=== PATIENT | female | born 1955 | race Two or more races ===

== ENCOUNTER 2023-04-04 19:36 | Inpatient (IN) | payer MEDICARE, OTHER ==
[~2023-04-04] VITALS: Ht 165.1 cm; Wt 77.0 kg
[2023-04-04 21:58] LABS: Eosinophils # (auto) 0.1 10 ^3/uL (0-0.8); Eosinophils % (auto) 0.9 % (0.0-7.0); Hemoglobin 12.5 g/dL (12.2-16.2); Neutrophils # (auto) 11.2 10 ^3/uL (1.6-8.6)
[2023-04-04 22:00] LABS: Basophils # (auto) 0.1 10 ^3/uL (0-0.2); Basophils % (auto) 0.5 % (0.0-2.0); Hematocrit 36.5 % (36.0-46.0); Lymphocytes # (auto) 1.1 10 ^3/uL (0.4-5.4); Lymphocytes % (auto) 8.4 % (10.0-50.0); Mean Corpuscular Hemoglobin 33.8 pg (28.0-32.0); Mean Corpuscular Hgb Conc. 34.3 g/dL (32.0-36.0); Mean Corpuscular Volume 98.6 fL (80.0-100.0); Monocytes % (auto) 7.4 % (0.0-12.0); Neutrophils % (auto) 82.8 % (37.0-80.0); Red Blood Cells 3.71 10^6/uL (4.0-5.20); Red Cell Distribution Width 12.3 % (11.8-14.3); White Blood Cell 13.6 10^3/uL (4.4-10.8)
[2023-04-04 22:20] LABS: Alanine Aminotransferase 18 U/L (7-40); Albumin 3.4 g/dL (3.2-4.8); Alkaline Phosphatase 107 U/L (46-116); Anion Gap 6 (5-15); Aspartate Aminotransferase 18 U/L (13-40); BUN/Creatinine Ratio 11.2 (10.0-20.0); Blood Urea Nitrogen 12 mg/dL (9-23); Calcium 8.6 mg/dL (8.7-10.4); Carbon Dioxide 25 mmol/L (20-30); Chloride 101 mmol/L (98-107); Glucose 375 mg/dL (74-106); Potassium 4.2 mmol/L (3.5-5.1); Sodium 132 mmol/L (136-145)
[2023-04-04 22:21] LABS: Bilirubin, Total 0.3 mg/dL (0.2-1.0); Total Protein 6.9 g/dL (5.7-8.2)
[2023-04-04] MEDS: IOHEXOL 300 MG/ML 100ML BOTTLE IJ ONE (23:10)
[2023-04-04] MEDS: InsuLIN REG 1unit/0.01ml Soln (100units/ml) IV ONE (23:30)
[2023-04-05] MEDS: PIPERACILLIN-TAZO 4.5GM 100 ML IV ONE (00:45)
[2023-04-05] MEDS: SODIUM CHLORIDE 0.9% 1,000 ML IV ONE (00:46)
[2023-04-05] MEDS ORDERED: ACETAMINOPHEN 325 MG TAB PO PRN (05:00)
[2023-04-05] MEDS ORDERED: ONDANSETRON HCL 4 MG/2 ML VIAL IV PRN (05:00)
[2023-04-05] MEDS ORDERED: DEXTROSE (50%) 50ML SYRG IV PRN (05:00)
[2023-04-05] MEDS: ACCU-CHEK COMFORT CURVE STRIP VI SCH ×2 (06:00→17:51)
[2023-04-05] MEDS: InsuLIN REG 1unit/0.01ml Soln (100units/ml) SC SCH ×2 (07:23→17:53)
[2023-04-05] MEDS: CLINDAMYCIN 600MG IV 50 ML IV SCH (08:23)
[2023-04-05] MEDS: HYDROcodone-ACET 5/325MG TAB PO PRN (08:29)
[2023-04-05] MEDS: BENAZEPRIL HCL 10 MG TAB PO SCH (09:44)
[2023-04-05] MEDS: GABAPENTIN 100 MG CAP PO SCH (09:44)
[2023-04-05] MEDS: cefTRIAXone 1GM/50ML D5W 50 ML IV SCH (09:44)
[2023-04-05 15:15] VITALS: RESP 18; O2SAT 97
[2023-04-05] MEDS ORDERED: VANCOMYCIN PER PHARMACY 0 MG IV SCH (15:15)
[2023-04-05] MEDS: INSULIN LANTUS (GLARGINE) 1 /0.01ml (100units/ml) SC ONE (16:15)
[2023-04-05] MEDS: VANCOMYCIN 1GM/200ML 200 ML IV ONE (16:36)
[2023-04-05] MEDS: PIPERACILLIN-TAZOB 3.375GM 100 ML IV SCH (18:27)
[2023-04-05] MEDS: ATORVASTATIN 20 MG TAB PO SCH (22:00)
[2023-04-05] MEDS: INSULIN LANTUS (GLARGINE) 1 /0.01ml (100units/ml) SC SCH (23:07)
[2023-04-06] VITALS (10 sets, daily range): BP systolic 111–157; BP diastolic 52–88; PULSE 59–71; RESP 16–20; TEMP 97.5–98.4; O2SAT 96–99
[2023-04-06] MEDS: VANCOMYCIN 750mg/150ml 150 ML IV SCH (05:17)
[2023-04-06 06:30] LABS: Basophils # (auto) 0.1 10 ^3/uL (0-0.2); Eosinophils # (auto) 0.3 10 ^3/uL (0-0.8); Hemoglobin 11.1 g/dL (12.2-16.2); Neutrophils # (auto) 7.5 10 ^3/uL (1.6-8.6); White Blood Cell 11.7 10^3/uL (4.4-10.8)
[2023-04-06 06:32] LABS: Basophils % (auto) 0.5 % (0.0-2.0); Eosinophils % (auto) 2.5 % (0.0-7.0); Hematocrit 33.8 % (36.0-46.0); Lymphocytes # (auto) 2.7 10 ^3/uL (0.4-5.4); Lymphocytes % (auto) 22.9 % (10.0-50.0); Mean Corpuscular Hemoglobin 32.9 pg (28.0-32.0); Mean Corpuscular Volume 99.6 fL (80.0-100.0); Monocytes # (auto) 1.2 10 ^3/uL (0-1.3); Monocytes % (auto) 10.3 % (0.0-12.0); Neutrophils % (auto) 63.8 % (37.0-80.0); Red Blood Cells 3.39 10^6/uL (4.0-5.20); Red Cell Distribution Width 12.2 % (11.8-14.3)
[2023-04-06 06:43] LABS: Alanine Aminotransferase 14 U/L (7-40); Alkaline Phosphatase 86 U/L (46-116); Anion Gap 6 (5-15); Aspartate Aminotransferase 15 U/L (13-40); BUN/Creatinine Ratio 17.4 (10.0-20.0); Blood Urea Nitrogen 15 mg/dL (9-23); Calcium 8.6 mg/dL (8.5-10.1); Carbon Dioxide 25 mmol/L (20-30); Chloride 102 mmol/L (98-107); Glucose 239 mg/dL (74-106); Sodium 133 mmol/L (136-145)
[2023-04-06 06:44] LABS: Bilirubin, Total 0.3 mg/dL (0.2-1.0)
[2023-04-06] MEDS: INSULIN LANTUS (GLARGINE) 1 /0.01ml (100units/ml) SC ONE (13:58)
[2023-04-06 16:59] LABS: Urine Epithelial Cast None Seen /hpf (<5)
[2023-04-06 17:10] LABS: Urine Bacteria FEW /hpf (None Seen); Urine Blood 1+ /uL (Negative); Urine Clarity Clear (Clear); Urine Color Colorless (Yellow); Urine Protein, UAD TRACE (Negative); Urine Specific Gravity 1.015 (1.001-1.035); Urine Urobilinogen Normal (Negative); Urine WBC 61 /hpf (0 - 5); Urine pH 5.5 (5.0-8.0)
[2023-04-06] MEDS: INSULIN LANTUS (GLARGINE) 1 /0.01ml (100units/ml) SC SCH (22:36)
[2023-04-07 05:00] VITALS: BP 137/83; PULSE 65; RESP 18; TEMP 98; O2SAT 97
[2023-04-07 08:30] VITALS: RESP 19; O2SAT 97
[2023-04-07] MEDS ORDERED: fentaNYL CITRATE 100 MCG/2 ML VL ONE (10:35)
[2023-04-07] MEDS ORDERED: MIDAZOLAM HCL 2MG/2ML 2ml VIAL (1mg/ml) ONE (10:35)
[2023-04-07] MEDS ORDERED: MEPERIDINE HCL (50 MG/ML) 1 ML VIAL ONE (10:35)
[2023-04-07 10:36] VITALS: BP 110/52; PULSE 60; RESP 16; TEMP 97.7; O2SAT 97
[2023-04-07] MEDS: SUCCINYLCHOLINE CHLORIDE 20 MG/ML 10ML VIAL IV ONE (10:39)
[2023-04-07] MEDS ORDERED: PROPOFOL 10 MG/ML 20 ML IV ONE (11:14)
[2023-04-07] MEDS ORDERED: DexAMETHasone SOD PHOS 10MG/1ML VIAL INJ ONE (11:14)
[2023-04-07] MEDS ORDERED: ONDANSETRON HCL 4 MG/2 ML VIAL ONE (11:14)
[2023-04-07] MEDS ORDERED: HYDROmorphone HCL 2 MG/ML VL/or syr IV PRN (11:30)
[2023-04-07] MEDS ORDERED: LABETALOL HCL 5 MG/ML 4ML SYRINGE IV PRN (11:30)
[2023-04-07] MEDS ORDERED: ONDANSETRON HCL 4 MG/2 ML VIAL IV PRN (11:30)
[2023-04-07] MEDS ORDERED: MORPHINE SULFATE 4 MG/ML SYR/VIAL IV PRN (11:30)
[2023-04-07] MEDS ORDERED: MIDAZOLAM HCL 2MG/2ML 2ml VIAL (1mg/ml) IV PRN (11:30)
[2023-04-07] MEDS ORDERED: ePHEDrine SULFATE 50 MG/ML AMP IV PRN (11:30)
[2023-04-07 11:42] VITALS: PULSE 76; RESP 15; O2SAT 92
[2023-04-07] MEDS: ACCU-CHEK COMFORT CURVE STRIP VI ONE (11:47)
[2023-04-07 17:21] VITALS: BP 142/67; PULSE 69; RESP 17; TEMP 97.6; O2SAT 97
[2023-04-07 20:00] VITALS: BP 104/44; PULSE 70; RESP 18; TEMP 98.2; O2SAT 93
[2023-04-07] MEDS: PIPERACILLIN-TAZOB 3.375GM 100 ML IV SCH (22:16)
[2023-04-07] MEDS: INSULIN LANTUS (GLARGINE) 1 /0.01ml (100units/ml) SC SCH (22:22)
[2023-04-07] MEDS ORDERED: DEXTROSE (50%) 50ML SYRG IV PRN (23:00)
[2023-04-07] MEDS: InsuLIN REG 1unit/0.01ml Soln (100units/ml) SC SCH (23:42)
[2023-04-07] MEDS: ACCU-CHEK COMFORT CURVE STRIP VI SCH (23:43)
[2023-04-08] VITALS (7 sets, daily range): BP systolic 121–171; BP diastolic 43–82; PULSE 58–66; RESP 16–19; TEMP 97.3–98.2; O2SAT 96–98
[2023-04-08 06:01] LABS: Basophils # (auto) 0 10 ^3/uL (0-0.2); Basophils % (auto) 0.2 % (0.0-2.0); Eosinophils # (auto) 0 10 ^3/uL (0-0.8); Eosinophils % (auto) 0.1 % (0.0-7.0); Hematocrit 35.6 % (36.0-46.0); Hemoglobin 11.8 g/dL (12.2-16.2); Lymphocytes # (auto) 1.4 10 ^3/uL (0.4-5.4); Lymphocytes % (auto) 11.3 % (10.0-50.0); Mean Corpuscular Hemoglobin 32.8 pg (28.0-32.0); Mean Corpuscular Hgb Conc. 33.2 g/dL (32.0-36.0); Monocytes # (auto) 0.7 10 ^3/uL (0-1.3); Monocytes % (auto) 5.6 % (0.0-12.0); Neutrophils % (auto) 82.8 % (37.0-80.0); White Blood Cell 12.1 10^3/uL (4.4-10.8)
[2023-04-08 06:37] LABS: Chloride 102 mmol/L (98-107); Potassium 3.9 mmol/L (3.5-5.1); Sodium 135 mmol/L (136-145)
[2023-04-08 06:38] LABS: Anion Gap 5 (5-15); Calcium 8.6 mg/dL (8.7-10.4); Carbon Dioxide 28 mmol/L (20-30)
[2023-04-08 06:43] LABS: BUN/Creatinine Ratio 17.5 (10.0-20.0); Blood Urea Nitrogen 11 mg/dL (9-23); Glucose 185 mg/dL (74-106)
[2023-04-08 06:44] LABS: Magnesium 1.6 mg/dL (1.6-2.6)
[2023-04-08] MEDS: DOCUSATE SOD 100 MG CAP PO ONE (12:50)
[2023-04-08] MEDS ORDERED: AMPICILLIN & SULBACTAM 3 GM in NS 0.9% 100 ML IV SCH (14:45)
[2023-04-08] MEDS: AMPICILLIN & SULBACTAM 3 GM in NS 0.9% 100 ML IV SCH (18:06)
[2023-04-08] MEDS: DOCUSATE SOD 100 MG CAP PO SCH (21:58)
[2023-04-09] VITALS (7 sets, daily range): BP systolic 113–151; BP diastolic 32–63; PULSE 56–74; RESP 17–20; TEMP 97.2–98.3; O2SAT 95–100
[2023-04-09 06:57] LABS: Basophils # (auto) 0.1 10 ^3/uL (0-0.2); Eosinophils # (auto) 0.2 10 ^3/uL (0-0.8); Lymphocytes # (auto) 1.7 10 ^3/uL (0.4-5.4); Monocytes # (auto) 0.8 10 ^3/uL (0-1.3); Red Cell Distribution Width 12.2 % (11.8-14.3)
[2023-04-09 07:04] LABS: Basophils % (auto) 0.9 % (0.0-2.0); Chloride 105 mmol/L (98-107); Eosinophils % (auto) 2.6 % (0.0-7.0); Hematocrit 33.4 % (36.0-46.0); Hemoglobin 11.3 g/dL (12.2-16.2); Lymphocytes % (auto) 24.6 % (10.0-50.0); Mean Corpuscular Hemoglobin 33.6 pg (28.0-32.0); Mean Corpuscular Hgb Conc. 33.9 g/dL (32.0-36.0); Mean Corpuscular Volume 99.2 fL (80.0-100.0); Monocytes % (auto) 10.9 % (0.0-12.0); Neutrophils # (auto) 4.3 10 ^3/uL (1.6-8.6); Potassium 3.9 mmol/L (3.5-5.1); Red Blood Cells 3.37 10^6/uL (4.0-5.20); Sodium 139 mmol/L (136-145)
[2023-04-09 07:05] LABS: Anion Gap 3 (5-15); Calcium 8.9 mg/dL (8.5-10.1); Carbon Dioxide 31 mmol/L (20-30)
[2023-04-09 07:10] LABS: Blood Urea Nitrogen 11 mg/dL (9-23); Glucose 123 mg/dL (74-106)
[2023-04-09] MEDS: BENAZEPRIL HCL 10 MG TAB PO SCH (09:10)
[2023-04-09] MEDS ORDERED: GASTROGRAFIN 120 ML SOL ONE (09:31)
[2023-04-09] MEDS: LACTULOSE 20Gm/30ML SOLN PO PRN (19:51)
[2023-04-10 05:00] VITALS: BP 135/66; PULSE 71; RESP 69; TEMP 98.6; O2SAT 96
[2023-04-10 08:00] VITALS: PULSE 66; RESP 18; O2SAT 97
[2023-04-10 09:00] VITALS: BP 141/60; PULSE 66; RESP 18; TEMP 97.9; O2SAT 97
[2023-04-10] MEDS: FLEET ENEMA(ADULT) 135 ML PR ONE (11:02)
[2023-04-10 13:00] VITALS: BP 139/72; PULSE 67; RESP 18; TEMP 98.8; O2SAT 98
[2023-04-10 17:00] VITALS: BP 128/71; PULSE 75; RESP 17; TEMP 98.7; O2SAT 96
[2023-04-10 22:00] VITALS: BP 109/49; PULSE 71; RESP 20; TEMP 98.8; O2SAT 96
[2023-04-11 05:00] VITALS: BP 101/54; PULSE 69; RESP 18; TEMP 98.5; O2SAT 98
[2023-04-11 08:00] VITALS: PULSE 60; RESP 16; O2SAT 100
[2023-04-11] MEDS ORDERED: METF-370 PO (08:22)
[2023-04-11] MEDS ORDERED: ASPI325T4 PO (08:22)
[2023-04-11] MEDS ORDERED: ATOR10TA52 PO (08:23)
[2023-04-11 12:52] VITALS: BP 138/53; PULSE 59; RESP 16; TEMP 98.6; O2SAT 99
[2023-04-11] MEDS ORDERED: AUG875T PO (16:41)
[2023-04-11] MEDS ORDERED: INSLANTI SC (16:41)
[2023-04-11 17:07] VITALS: BP 127/59; PULSE 69; RESP 16; TEMP 98.1; O2SAT 96
[2023-04-11 18:08] VITALS: BP 127/59; PULSE 69; RESP 16; TEMP 98.1; O2SAT 96
== END 2023-04-11 19:15 | disposition home or self-care (01) | DRG 710 ==
LOC: ER 19:36 → OVERFLOW 04-05 04:49 → CENTRAL 04-05 04:49
PROVIDERS: ADMIT Nurse Practitioner; ATTEND Internal Medicine Geriatric Medicine
PROC: 0D9P0ZZ Drainage of Rectum, Open Approach (ICD-10-PCS; principal; 2023-04-07 10:40)
DX: A41.9 Sepsis, unspecified organism (principal); N17.0 Acute kidney failure with tubular necrosis; K61.2 Anorectal abscess; E11.65 Type 2 diabetes mellitus with hyperglycemia; I10 Essential (primary) hypertension; L02.31 Cutaneous abscess of buttock; K59.00 Constipation, unspecified; Z82.49 Family history of ischemic heart disease and other diseases of the circulatory system
CPT/HCPCS: 36415; 71045; 74177; 74250; 80048; 80053; 80202; 81001; 82565; 82962; 83036; 83735; 85025; 86850; 86900; 86901; 87070; 87075; 87081; 87205; G0378; J0330; J1100; J1815; J2250; J2405; J2543; J2704; J3490